=== PATIENT | male | born 1965 | race Caucasian/White ===

== ENCOUNTER → 2017-11-03 | Outpatient (CLI) | payer OTHER ==
--- NOTE | 2017-11-03 13:06 | RADIOLOGY IMAGING REPORT ---
FACILITY: [facility] PATIENT NAME: Rusty Rosen : 1965 MR: [id number] V: [id number] EXAM DATE: ORDERING PHYSICIAN: TODD COMBS TECHNOLOGIST: Location: [facility] [place] Patient: Rusty Rosen : 1965 Visit/Account:[id number] Date of Sevice: 11/03/2017 EXAMINATION: CT Lumbar spine without intravenous contrast HISTORY: Discogram. COMPARISON: None available. TECHNIQUE: Noncontrast axial CT of the lumbar spine with sagittal and coronal reformats. One of the following dose optimization techniques was utilized in the performance of this exam: Autom ated exposure control; adjustment of the mA and/or kV according to the patient's size; or use of an i terative reconstruction technique. Specific details can be referenced in the facility's radiology C T exam operational policy. FINDINGS: Alignment: Mild convex leftward curvature. Vertebral bodies: Small intraosseous hemangiomas in the L2 and L3 vertebral bodies. Normal vertebral body height. Posterior elements: Mild multilevel facet hypertrophy. Hardware: None. Disc Spaces: Mild multilevel degenerative disc disease with intervertebral disc contrast material at L3-L4, L4-L5, and L5-S1. Soft tissues: Negative. Visualized retroperitoneal / abdominal structures: Negative. IMPRESSION: Mild multilevel degenerative disc disease and facet hypertrophy with mild convex leftward curvature.. L3-L4, L4-L5, and L5-S1 discogram. Report Dictated By: Ramakrishna Bernardo MD at 11/03/2017 12:59 PM Report E-Signed By: Ramakrishna Bernardo MD at 11/03/2017 1:02 PM WSN:[id number]
== END ==
LOC: CT 12:04
PROVIDERS: ATTEND Physical Medicine & Rehabilitation Pain Medicine
DX: M51.36 Other intervertebral disc degeneration, lumbar region (principal)
CPT/HCPCS: 72295